=== PATIENT | male | born 1995 | race Caucasian/White ===

== ENCOUNTER 2017-07-12 19:53 | Emergency (ER) | payer OTHER ==
[~2017-07-12] VITALS: Ht 182.9 cm; Wt 62.0 kg
[2017-07-12 19:54] VITALS: BP 107/71
[2017-07-12] MEDS ORDERED: LIDOCAINE 1%, 20ML SQ ONE (20:30)
[2017-07-12] MEDS ORDERED: LIDOCAINE 1%, 20ML ONE (20:31)
== END 2017-07-12 21:45 | disposition home or self-care (01) ==
LOC: ED 21:05
DX: S61.216A Laceration without foreign body of right little finger without damage to nail, initial encounter (principal); W22.8XXA Striking against or struck by other objects, initial encounter; Y93.89 Activity, other specified; Y99.8 Other external cause status; Y92.099 Unspecified place in other non-institutional residence as the place of occurrence of the external cause
CPT/HCPCS: 12001; 99283; J3490